=== PATIENT | male | born 1975 | race Caucasian/White ===

== ENCOUNTER 2017-05-21 14:50 | Emergency (ER) | payer OTHER ==
--- NOTE | 2017-05-21 15:03 | PDOC ---
Rapid Medical Evaluation Chief Complaint: Ear Problem Time Seen by Provider: 05/21/17 14:59 Medical Evaluation: 05/21/17 14:59 I have performed a brief in-person evaluation of this patient. The patient presents with a chief complaint of: Fever w/ chills Pertinent physical exam findings: Stable w/ ? b/l tonsilar lypmhadenopathy I have ordered the following:Rapid strep The patient will proceed to the ED for further evaluation. 05/21/17 15:03
[2017-05-21 15:04] VITALS: BP 152/80; PULSE 73; TEMP 99.5; BMI 29.0
[2017-05-21] MEDS ORDERED: KETOROLAC TROMETHAMINE 30 MG/1 ML VIAL ONE (16:46)
[2017-05-21] MEDS ORDERED: DEXAMETHASONE SOD PHOSPHATE 10 MG/1 ML VIAL ONE (16:46)
--- NOTE | 2017-05-21 16:53 | PDOC ---
History of Present Illness - General Chief Complaint: Ear Problem Stated Complaint: EAR PROBLEM Time Seen by Provider: 05/21/17 14:59 History Source: Patient Exam Limitations: No Limitations - History of Present Illness Initial Comments: 05/21/17 16:46 This is a 41-year-old gentleman without past medical history presents emergency Department with 1 week of sore throat and some bilateral swelling to his mandible. Patient states he has had mild fevers for the past couple days for which she has taken Tylenol. He denies any cough. Patient denies any difficulty swallowing or painful swallowing. Denies headaches, chest pain, shortness of breath, abdominal pain, nausea, vomiting. PMD: Denies PMH: Denies PSH: Denies NKDA Past History - Past Medical History Allergies/Adverse Reactions: Allergies Allergy/AdvReac Type Severity Reaction Status Date / Time No Known Allergies Allergy Verified 05/21/17 15:04 Home Medications: Ambulatory Orders Cefdinir [Omnicef -] 300 mg PO BID #20 capsule 05/21/17 COPD: No - Suicide/Smoking/Psychosocial Hx Smoking History: Never smoked Have you smoked in the past 12 months: No Information on smoking cessation initiated: No Hx Alcohol Use: No Drug/Substance Use Hx: No Substance Use Type: None Review of Systems - Review of Systems Able to Perform ROS?: Yes Is the patient limited [place] proficient: No Constitutional: Yes: See HPI HEENTM: Yes: See HPI Respiratory: No: Symptoms reported Cardiac (ROS): No: Symptoms Reported ABD/GI: No: Symptoms Reported : No: Symptoms Reported Musculoskeletal: No: Symptoms Reported Integumentary: No: Symptoms Reported Neurological: No: Symptoms reported Endocrine: No: Symptoms Reported Hematologic/Lymphatic: No: Symptoms Reported *Physical Exam - Vital Signs Last Vital Signs Temp Pulse Resp BP Pulse Ox 99.5 F 73 17 152/80 99 05/21/17 14:59 05/21/17 14:59 05/21/17 14:59 05/21/17 14:59 05/21/17 14:59 - Physical Exam General Appearance: Yes: Appropriately Dressed. No: Apparent Distress HEENT: positive: PETER, TMs Normal, Muffled/Hoarse voice, Pharyngeal Erythema, Tonsillar Erythema, Hearing Grossly Normal. negative: Sinus Tenderness Neck: positive: Trachea midline Respiratory/Chest: positive: Lungs Clear, Normal Breath Sounds. negative: Respiratory Distress, Accessory Muscle Use Cardiovascular: positive: Regular Rhythm, Regular Rate. negative: Murmur Gastrointestinal/Abdominal: positive: Normal Bowel Sounds, Soft. negative: Tender Male Genitalia: positive: normal genitalia Musculoskeletal: positive: Normal Inspection. negative: CVA Tenderness Extremity: positive: Normal Capillary Refill, Normal Inspection, Normal Range of Motion Integumentary: positive: Normal Color, Dry, Warm Neurologic: positive: ocean forwarder II-XII NML intact, Fully Oriented, Alert, Normal Mood/ Affect, Normal Response, Motor Strength 09/21 ED Treatment Course - ADDITIONAL ORDERS Additional order review: 05/21/17 15:03 Group A Strep Rapid Antigen - Final Throat Medical Decision Making - Medical Decision Making 05/21/17 16:48 A/P: This is a 41-year-old gentleman without past medical history presents emergency Department with 1 week of sore throat and some bilateral swelling to his mandible. Patient states he has had mild fevers for the past couple days for which she has taken Tylenol. He denies any cough. Patient denies any difficulty swallowing or painful swallowing. Denies headaches, chest pain, shortness of breath, abdominal pain, nausea, vomiting. Evaluation of oropharynx reveals kissing tonsils. There is no exudate. Patient has pharyngeal and tonsillar erythema. Patient with bilateral parotid swelling. Lungs clear to auscultation bilaterally. S1 and S2 are present. RRR. No murmur, rub or gallop noted. Abdomen soft nontender nondistended. Centor score of 4. Testicular exam is within normal limits. Differential diagnosis include- parotiditis, tonsillitis, pharyngitis Patient with negative rapid strep testing. Clinically the patient looks like he has a strep throat. I will give the patient's 10 mg of Decadron by mouth and 30 mg of IM Toradol now. I will treat the patient prophylactically for strep throat given clinical symptoms. *DC/Admit/Observation/Transfer Diagnosis at time of Disposition: Pharyngitis Qualifiers: Pharyngitis/tonsillitis etiology: unspecified etiology Qualified Code(s): J02.9 - Acute pharyngitis, unspecified - Discharge Dispostion Disposition: HOME Condition at time of disposition: Stable Admit: No - Prescriptions Prescriptions: Cefdinir [Omnicef -] 300 mg PO BID #20 capsule - Referrals - Patient Instructions Additional Instructions: Take antibiotics as prescribed. Take Tylenol or Motrin as needed for fever and/or pain. Follow manufacturers instructions for appropriate dosage. Saltwater gargles may help relieve some of the pain Urex praising. Unlisted antibiotics for 1-year-old toothbrush and began using a new toothbrush. Return to emergency department for difficulty breathing, inability to swallow, shortness of breath, chest pain, or any other concerns. Thank you very much for choosing us to provide your emergent healthcare needs. - Post Discharge Activity
[2017-05-21] MEDS ORDERED: DEXAMETHASONE LIQUID 0.5 MG/5 ML 240 ML BULK BOTTLE PO ONE (17:05)
[2017-05-21] MEDS ORDERED: KETOROLAC TROMETHAMINE 30 MG/1 ML VIAL IM ONE (17:06)
== END 2017-05-21 17:12 | disposition home or self-care (01) ==
LOC: JERFT 14:50
PROC: 3E0233Z Introduction of Anti-inflammatory into Muscle, Percutaneous Approach (ICD-10-PCS; principal; 2017-05-21)
DX: J02.9 Acute pharyngitis, unspecified (principal)
CPT/HCPCS: 87070; 87430; 96372; 99281-25